=== PATIENT | female | born 2000 | race Caucasian/White ===

== ENCOUNTER 2019-07-13 10:19 | Emergency (ER) | payer MEDICAID ==
[~2019-07-13] VITALS: Ht 165.1 cm; Wt 83.9 kg
[2019-07-13 10:21] VITALS: BP 115/63
--- NOTE | 2019-07-13 10:28 | NUR ---
Pt taken to bed 7.
--- NOTE | 2019-07-13 10:30 | NUR ---
19F c/o pelvic cramping, sharp lower back pain bilateral x 20 minutes. States large amount of vaginal bleeding. Have changed 3 pads. LMP 04/10/19, 8 weeks , MUNA 01/15/20. +nausea. PATIENT STATES PAIN OF 10/10 AT THIS TIME; VSS; PATIENT POSITIONED FOR COMFORT; HOB ELEVATED; BEDRAILS UP X1; BED DOWN. ER MD MADE AWARE OF PT STATUS.
--- NOTE | 2019-07-13 10:38 | NUR ---
PT IS NOT ABLE TO URINATE AT THIS TIME.
--- NOTE | 2019-07-13 11:08 | NUR ---
PT TAKEN TO ULTRASOUND AT THIS TIME
--- NOTE | 2019-07-13 11:09 | NUR ---
PT TAKEN TO ULTRASOUND VIA WHEELCHAIR.
[2019-07-13 11:11] LABS: HEMATOCRIT 40.4 % (36-48); HEMOGLOBIN 13.1 g/dL (12.0-16.0); MEAN CORPUSCULAR HEMOGLOBIN 27 pg (27-31); MEAN CORPUSCULAR HGB CONC 33 g/dL (33-37); MEAN CORPUSCULAR VOLUME 81.6 fL (80-94); PLATELET COUNT (AUTO) 245 K/uL (140-450); RED BLOOD CELL COUNT(AUTO) 4.95 MIL/uL (4.20-5.40); WHITE BLOOD COUNT (AUTO) 5.8 K/uL (4.5-11.0)
--- NOTE | 2019-07-13 11:28 | NUR ---
Khai syed in ED - 07/13/19 at 1445 by LINDSEY Pt is taking to u/s via wheelchair assisted by tech.
[2019-07-13 11:34] LABS: BASOPHILS % (MANUAL) 0 % (0-2); EOSINOPHILS % (MANUAL) 2 % (0-4); LYMPHOCYTES % (MANUAL) 37 % (20-46); MONOCYTES % (MANUAL) 7 % (5-12)
--- NOTE | 2019-07-13 11:50 | NUR ---
PT HAS BEEN BACK FROM U/S VIA WHEELCHAIR ASSISTED BY TECH.
[2019-07-13] MEDS ORDERED: ONDANSETRON 4 MG/2 ML VIAL IVP ONE (12:15)
[2019-07-13] MEDS ORDERED: MORPHINE SULFATE 4 MG/ML SYR IVP ONE (12:15)
[2019-07-13] MEDS ORDERED: NACL 0.9% 1,000 ML IV ONE (12:15)
--- NOTE | 2019-07-13 12:32 | NUR ---
PT'S URINE SAMPLE OBTAINED AND SENT TO THE LAB. PT DENIES TAKING 1L SALINE BOLUS, ZOFRAN, AND MORPHINE AT THIS TIME. DR. GRACE NOTIFIED.
[2019-07-13 13:10] LABS: APPEARANCE,URINE HAZY (CLEAR); BILIRUBIN,URINE NEGATIVE (NEGATIVE); BLOOD, URINE 3+ (NEGATIVE); COLOR,URINE YELLOW (YELLOW); LEUKOCYTE ESTERASE ,URINE NEGATIVE (NEGATIVE); NITRITE, URINE NEGATIVE (NEGATIVE); UGLUCOSE NEGATIVE (NEGATIVE)
--- NOTE | 2019-07-13 13:15 | NUR ---
PT PROVIDED WITH SANDWICH
[2019-07-13 13:26] LABS: RBC,URINE 20-50 /HPF (0-5); WBC,URINE 0-5 /HPF (0-5)
--- NOTE | 2019-07-13 14:20 | NUR ---
DR. GRACE IS TALKING TO THE PT AT BEDSIDE.
--- NOTE | 2019-07-13 14:38 | NUR ---
DR. GRACE IS RE-EVALUATING AND TALKING TO PT AT BEDSIDE.
[2019-07-13 15:00] VITALS: BP 119/60
--- NOTE | 2019-07-13 15:00 | NUR ---
Patient discharged with v/s stable. Written and verbal after care instructions given and explained. Patient verbalized understanding. Ambulatory with steady gait. All questions addressed prior to discharge. Advised to follow up with STAGE MANAGER and return to ER in 4-5days to check HCG or 1-2 days if pt has any new worse Sx.
== END 2019-07-13 15:00 | disposition home or self-care (01) ==
LOC: MED 10:19
DX: O46.91 Antepartum hemorrhage, unspecified, first trimester (principal); Z3A.08 8 weeks gestation of pregnancy
CPT/HCPCS: 36415; 76817; 81001; 84702; 85025; 86900; 86901; 96374; 96375; 99284; Q0092; J2270; J2405

== ENCOUNTER 2019-07-16 19:45 | Emergency (ER) | payer MEDICAID ==
[~2019-07-16] VITALS: Ht 165.1 cm; Wt 83.9 kg
[2019-07-16 19:50] VITALS: BP 125/89
[2019-07-16] MEDS ORDERED: MORPHINE SULFATE 4 MG/ML SYR IVP ONE (20:15)
[2019-07-16 20:34] LABS: BASOPHILS % (AUTO) 0.7 % (0.0-2.0); EOSINOPHILS # (AUTO) 0.3 K/uL (0-0.4); EOSINOPHILS % (AUTO) 4.2 % (0.0-4.0); HEMATOCRIT 39.5 % (36-48); HEMOGLOBIN 12.9 g/dL (12.0-16.0); LYMPHOCYTES # (AUTO) 2.4 K/uL (2.5-16.5); MEAN CORPUSCULAR HEMOGLOBIN 27 pg (27-31); MEAN CORPUSCULAR HGB CONC 33 g/dL (33-37); MEAN CORPUSCULAR VOLUME 81.4 fL (80-94); MONOCYTES # (AUTO) 0.5 K/uL (0.8-1.0); MONOCYTES % (AUTO) 7.4 % (1.7-9.3); NEUTROPHILS % (AUTO) 48.7 % (42.2-75.2); PLATELET COUNT (AUTO) 308 K/uL (140-450); RED BLOOD CELL COUNT(AUTO) 4.85 MIL/uL (4.20-5.40); RED CELL DISTRIBUTION WIDTH 23.3 % (11.6-13.7); WHITE BLOOD COUNT (AUTO) 6.2 K/uL (4.5-11.0)
[2019-07-16 20:42] LABS: ANION GAP 15.2 (8-16); CREATININE 0.7 mg/dL (0.6-1.3); POTASSIUM 4.2 mmol/L (3.5-5.1)
[2019-07-16 20:48] LABS: TOTAL BILIRUBIN 0.2 mg/dL (0.0-1.0)
[2019-07-16 21:54] VITALS: BP 125/89
== END 2019-07-16 21:54 | disposition home or self-care (01) ==
LOC: MED 19:45
DX: O03.9 Complete or unspecified spontaneous abortion without complication (principal); O21.8 Other vomiting complicating pregnancy; Z3A.08 8 weeks gestation of pregnancy
CPT/HCPCS: 36415; 76801; 80053; 81002; 81025; 84702; 85025; 96374; 99284; J2270; Q0092